=== PATIENT | female | born 1955 | race Caucasian/White ===

== ENCOUNTER 2019-06-07 19:30 | Outpatient (CLI) | payer MEDICARE, MEDICAID | END 2019-06-07 19:31 | disposition home or self-care (01) | LOC: SLEEPLAB 19:30 | PROVIDERS: ATTEND Family Medicine | DX: G47.33 Obstructive sleep apnea (adult) (pediatric) (principal); E66.9 Obesity, unspecified; R06.83 Snoring; R40.0 Somnolence | CPT/HCPCS: 36415; 80048; 84439; 84443; 84481; 95811 ==

== ENCOUNTER 2020-04-17 10:57 | Outpatient (CLI) | payer MEDICARE, MEDICAID ==
--- NOTE | 2020-04-17 13:16 | CT ---
Exam: CTA abdomen with 3-D rendering: HISTORY: Follow-up aortic aneurysm. COMPARISON: None TECHNIQUE: CT angiogram of the abdominal aorta performed in the axial plane. Three-dimensional reform atted images are submitted for interpretation. FINDINGS: Lung bases: Small bilateral pleural effusions. Chronic lung parenchymal changes are suspected HEART: Normal heart size. No significant pericardial fluid. Abdomen CT: Gallbladder: Surgically absent Portal vein: Limited evaluation of this arterial phase exam Solid organs: Appropriate arterial phase enhancement of the liver, spleen, pancreas and adrenal gland s Kidneys: Symmetric enhancement. No obstructive uropathy. Mesentery: No mass, lymphadenopathy, free air or free fluid Alimentary canal: Limited evaluation by the lack of oral contrast. No evidence of a bowel obstruction . Normal ileocecal junction. Osseous structures: No lytic or blastic lesions. There is diffuse bone demineralization. CT ANGIOGRAM: Descending thoracic aorta and abdominal aorta have a normal caliber. No aneurysm, dissection or peria ortic fat stranding. Scattered atherosclerotic plaques. Celiac artery: Appropriate enhancement and luminal diameter of the origin and proximal celiac artery Superior mesenteric artery: Appropriate enhancement and luminal diameter the origin and proximal supe rior mesenteric artery Renal arteries: Solitary right and 2 left renal arteries. No significant atherosclerosis at the level of the left or right renal ostium. Aortic bifurcation and iliac arteries: Appropriate enhancement and luminal diameter. Mild atheroscler osis is noted. IMPRESSION: No CT evidence for aortic aneurysm or aortic dissection.
[2020-04-17] MEDS ORDERED: Iopamidol 370 76% 100 ML VIAL ONE (16:13)
== END 2020-04-17 10:58 | disposition home or self-care (01) ==
LOC: CT 10:57
PROVIDERS: ATTEND Family Medicine
DX: I71.4 Abdominal aortic aneurysm, without rupture (principal)
CPT/HCPCS: 74174; 82565; Q9967